=== PATIENT | male | born 1960 | race Caucasian/White ===

== ENCOUNTER 2024-04-22 16:21 | Emergency (ER) | payer MEDICARE, SELFPAY ==
[2024-04-22 16:23] VITALS: BP 125/94
--- NOTE | 2024-04-22 18:31 | ED.MUSCINJ ---
HPI-Injury
General
Chief Complaint: Musculo-Skeletal Complaint
Source: patient
Exam Limitations: none
Time Seen by Provider: 04/22/24 17:40
Nursing documentation reviewed up to this point in time: agreed with
History of Present Illness-Injury
Initial Injury comments:
Patient to ED with complaint of low back pain Pain started this past week. No history of trauma. Also reports swelling to right flank. Brought self to ED for eval.
Past History
Past History
ED Past Medical History: GERD, Other (DJD lower back) and Other (renal stones)
Social History
Tobacco: Non-smoker
Drug: None
Personal:
Living: alone (recently moved from [place] to this area.)
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
Family History
Family History: Other
Review of Systems
Review of Systems
Allergies reviewed?: Yes
All Other Systems: ROS reviewed and negative except as documented in HPI and ROS
Constitutional: Reports no symptoms
EENT: Reports no symptoms
Respiratory: Reports no symptoms
Cardiac: Reports no symptoms
ABD/GI: Reports no symptoms
: Reports no symptoms
Musculoskeletal: Reports back pain (bilateral lower back.)
Skin: Reports other (Erythema right flank)
Neurological: Reports no symptoms
Psychiatric: Reports no symptoms
Musculoskeletal Injury Exam
Musculoskeletal Injury Exam
Bilateral Lower Back:
Pain with Movement?: Moderate
Tender to palpation?: None
Soft tissue swelling?: None
External deformity and angulation?: None
Joint effusion?: None
Contusion?: None
Hematoma-local bleeding into tissue?: None
Crepitus with movement?: No
Joint instability?: No
Malalignment/deformity?: No
Range of motion: Limited
Distal skin color and temperature: normal-warm & good color
Capillary Refill: normal
Normal distal neurovascular exam?: Yes
Phy Exam
General Physical Exam
General Presentation: well appearing and no apparent distress
General age: appears stated age
General Skin: warm and dry
General Habitus: normal
General Mental: alert
Eye Exam
Eye Exam: PERRL, EOMI, conjunctiva normal and globe normal
Neurological Exam
Neurological Exam: alert, oriented x3, no motor deficits, no sensory deficits and normal gait
Levi Coma Scale
Eye Opening: Spontaneous
Verbal Response: Oriented
Motor Response: Obeys Commands
GCS Total Score: 15
Musculoskeletal Exam
Musculoskeletal Exam: back pain and neuro vasc intact
Skin Exam
Skin Exam: normal color, warm/dry, no rash and other (Area if mild erythema right flank. Admits to using ice and heat against his skin and this is consistent with presentation. No skin rash. No pain at site)
Psychiatric Exam
Psychiatric Exam: normal mood/affect
Injury Course
Orders/Labs/Results
Orders:
Orders
04/22/24 17:50
Lumbar Spine Complete, 4 View [CR Lumbar Spine Comp Min 4 Vw*] Urgent
Comment:
Reason For Exam: pain
*Radiology
Radiology exam reviewed: radiology read reviewed
*Pulse Oximetry
Patient hypoxic: no
*Critical Care Note
Total Time (30-74mins, 75-104mins- exclusive of procedures): Not Applicable
ED Attending Note
-
Portions of this chart may have been created with voice recognition software.� Occasional wrong word or��sound alike� substitutions may have occurred due to the inherent limitations of voice recognition software.
Discharge Plan
Departure
Patient Disposition: Home (Routine Discharge)
Date of Disposition: 04/22/24
Time of Disposition: 18:20
Patient with high blood pressure during this ER visit?: No
Condition: Good
Covid-19: Not Applicable
Discharge Problem:
Low back pain
Instructions: Ibuprofen, Using Cold for Pain, Back Pain
Prescriptions:
New
hydrocodone-acetaminophen 5-325 mg tablet
1 tab PO Q4H PRN (Reason: Pain) Qty: 7 0RF
prednisone 10 mg Tablet
See Rx Instructions .ROUTE .COMPLEX Qty: 30 0RF
Rx Instructions:
Take By Mouth:
40 mg daily x3 days, 30 mg daily x3 days,
20 mg daily x3 days, 10 mg daily x3 days.
No Action
ondansetron 4 MG tablet,disintegrating
4 mg PO TIDPRN PRN (Reason: nausea) Qty: 7 0RF
oxycodone-acetaminophen 5 MG/325 MG tablet
1 tab PO Q4HPRN PRN (Reason: pain) Qty: 12 0RF
sucralfate 1 GM/10 ML suspension
1 gm PO QID
tamsulosin 0.4 MG capsule
0.4 mg PO DAILY
pantoprazole 40 MG tablet,delayed release (DR/EC)
40 mg PO DAILY
prednisone 10 mg tablet
See Taper PO DIRECTED Qty: 45 0RF
Taper: Prednisone DC Starting at 50 mg daily
50 mg Daily for 3 Days and 0 Hour
40 mg Daily for 3 Days and 0 Hour
30 mg Daily for 3 Days and 0 Hour
20 mg Daily for 3 Days and 0 Hour
10 mg Daily for 3 Days and 0 Hour
Rx Instructions:
50 mg daily for 3 Days; 40 mg daily for 3 Days; 30 mg daily for 3 Days; 20 mg daily for 3 Days; 10 mg daily for 3 Days
Referrals:
Grant Funez MD [Family Provider] - Follow up in 2-3 days
Interventions
Interventions:
*Risk Screen - Suicide Last Done: 04/22/24 16:23
*General Assessment Last Done: 04/22/24 16:23
*Neglect/Abuse Screening Last Done: 04/22/24 16:23
*Nursing Disposition Last Done: 04/22/24 19:03
ED-Musculoskeletal Assessment Last Done: 04/22/24 17:01
Discharge Date and Time
Discharge Date/Time: 04/22/24 19:24
Print Language: OCCITAN
[2024-04-22 19:03] VITALS: BP 115/71
== END 2024-04-22 19:24 | disposition home or self-care (01) ==
LOC: EMR 16:21
PROVIDERS: EMERGENCY PHYSICIAN Emergency Medicine; FAMILY PHYSICIAN Family Medicine
DX: M54.50 Low back pain, unspecified (principal); K21.9 Gastro-esophageal reflux disease without esophagitis; M47.816 Spondylosis without myelopathy or radiculopathy, lumbar region; Z87.442 Personal history of urinary calculi
CPT/HCPCS: 99283; 72110

== ENCOUNTER 2024-06-22 14:11 | Emergency (ER) | payer OTHER, SELFPAY ==
[2024-06-22] MEDS: NORCO 5/325 2 TABLET PO (14:26)
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
[2024-06-22 14:28] VITALS: BMI 23.9
[2024-06-22] MEDS: BACITRACIN OINTMENT 1 APPLIC TOPICAL (14:32)
[2024-06-22] MEDS: ADACEL 0.5 ML IM (14:38)
[2024-06-22 14:53] VITALS: BP 126/84
== END 2024-06-22 15:00 | disposition home or self-care (01) ==
LOC: EMR 14:11
PROVIDERS: EMERGENCY PHYSICIAN Emergency Medicine; FAMILY PHYSICIAN Family Medicine
DX: T23.252A Burn of second degree of left palm, initial encounter (principal); T23.222A Burn of second degree of single left finger (nail) except thumb, initial encounter; X17.XXXA Contact with hot engines, machinery and tools, initial encounter; Y93.89 Activity, other specified; K21.9 Gastro-esophageal reflux disease without esophagitis; M47.816 Spondylosis without myelopathy or radiculopathy, lumbar region; Z87.442 Personal history of urinary calculi; Z23 Encounter for immunization
CPT/HCPCS: 99283; 90471; 16020; 90715

== ENCOUNTER → 2024-08-17 14:28 | Outpatient (REF) | payer OTHER, SELFPAY | LOC: RAD 14:28 | PROVIDERS: ATTENDING PHYSICIAN Internal Medicine Gastroenterology; FAMILY PHYSICIAN Family Medicine | DX: R52 Pain, unspecified (principal); R10.13 Epigastric pain | CPT/HCPCS: 74018 ==

== ENCOUNTER → 2024-08-19 14:41 | Outpatient (REF) | payer OTHER, SELFPAY | LOC: RAD 14:41 | PROVIDERS: ATTENDING PHYSICIAN Physician Assistant | DX: Z87.891 Personal history of nicotine dependence (principal); F12.90 Cannabis use, unspecified, uncomplicated | CPT/HCPCS: 71271 ==

== ENCOUNTER → 2024-09-01 12:00 | Outpatient (REF) | payer OTHER, SELFPAY | LOC: RAD 12:00 | PROVIDERS: ATTENDING PHYSICIAN Physician Assistant | DX: M54.50 Low back pain, unspecified (principal) | CPT/HCPCS: 72110 ==

== ENCOUNTER 2024-09-08 06:19 | Day surgery (SDC) | payer OTHER, SELFPAY | END 2024-09-08 12:20 | disposition home or self-care (01) | LOC: GI 06:19 | PROVIDERS: ATTENDING PHYSICIAN Internal Medicine Gastroenterology | DX: K52.9 Noninfective gastroenteritis and colitis, unspecified (principal); R15.9 Full incontinence of feces; K57.30 Diverticulosis of large intestine without perforation or abscess without bleeding; K62.89 Other specified diseases of anus and rectum; Z87.19 Personal history of other diseases of the digestive system | CPT/HCPCS: 45331; 88305 ==

== ENCOUNTER → 2025-07-24 14:53 | Outpatient (REF) | payer OTHER, SELFPAY | LOC: MRI 3T 14:53 | PROVIDERS: ATTENDING PHYSICIAN Physician Assistant Surgical; FAMILY PHYSICIAN Family Medicine | DX: M47.816 Spondylosis without myelopathy or radiculopathy, lumbar region (principal); M48.062 Spinal stenosis, lumbar region with neurogenic claudication | CPT/HCPCS: 72148 ==